=== PATIENT | male | born 1965 ===

== ENCOUNTER → 2019-08-28 | Outpatient (CLI) | payer OTHER ==
[~2019-08-28] MED LIST: HYDR-2765 PO; IOHEXOL 180 MG/ML 10 ML VIAL. ONE; methylPREDNISolone ACETATE 40 MG/ML VIAL. ONE; methylPREDNISolone ACETATE 80 MG/ML VIAL. ONE
--- NOTE | 2019-08-28 11:25 | PAIN ---
DATE OF SERVICE: 08/28/2019 INITIAL CONSULTATION FOR PAIN CLINIC CHIEF COMPLAINT: Low back and right lower extremity pain. HISTORY OF PRESENT ILLNESS: This is a 54-year-old male who presents with chief complaint of pain in the low back, right lower extremity since he fell on the ice about 4 months ago. The patient has some low back pain in the past, but nothing worse, radiating down to his right leg like it is now. The patient reports since that time is becoming more constant, sharp, radiating to the anterior thigh, anterior medial thigh, medial lower leg and knee as well as across the low back, mostly on the right side, but some on the left as well. The patient reports he has difficulty with sleeping, wakes him from sleep at least once or twice a night, does not affect his bowel or bladder control, but does affect his ability to walk in the right leg but would sometimes "give out" when he is walking. The patient reports he has not had any formal physical therapy at this time. He has been doing some stretching at home, which was recommended by his primary physician. The patient also seen a neurosurgeon who is requesting conservative measures at this time. The patient did have an MRI scan of the lumbar spine on 06/11/2019 showing generalized disk bulging and a protrusion at L3-L4 and L4-L5 with severe central spinal stenosis at the L3-L4 level, disk bulge, slightly more eccentric towards the right with severe right-sided neural foraminal narrowing, moderate left neural foraminal narrowing, L4-L5 shows generalized disk bulge eccentric towards the left with severe hypertrophic posterior facet degenerative change eccentric towards the right disk bulge, also with severe right-sided neural foraminal narrowing. The patient reports his disability range from 0-10, 10 being the worst, is an 8 in all categories, family home responsibilities, recreation, social activity, occupational activities, sexual behavior, self-care, social activity and life support activities. The patient has tried hydrocodone, which does decrease the pain, took it as recently as yesterday by about 50%. PAST MEDICAL HISTORY: Significant for no major medical problems or conditions this worst. PREVIOUS SURGERY: Include a right biceps tendon repair, tonsillectomy, ear tubes, bilateral hernia repair and vasectomy. CURRENT MEDICATIONS: Include only hydrocodone p.r.n. ALLERGIES: The patient has no known drug allergies. FAMILY HISTORY: Significant for no major medical problems or conditions he is aware of. SOCIAL HISTORY: The patient does not drink alcohol, does not smoke. Denies any illegal, illicit or recreational drugs. The patient is single, lives locally in [place], [place] and works as a laborer/grade check. REVIEW OF SYSTEMS: The patient's review of systems is positive for those items mentioned in the history of present illness. All systems reviewed and otherwise negative. It is complete, full and well documented on the patient's chart. PHYSICAL EXAMINATION: VITAL SIGNS: The patient's blood pressure 173/100, pulse 60, respirations 18, temperature 98.0 degrees Fahrenheit, height is 5 feet 6 inches, weight is 183 pounds. GENERAL: The patient is awake, alert, oriented, appropriate, very pleasant demeanor. HEENT: Shows normocephalic, atraumatic. Extraocular movements are intact and symmetrical. Oral cavity: Mucous membranes moist and pink. Dentition is intact. NECK: Shows anterior throat supple without palpable lymphadenopathy noted. Swallow reflex symmetrical. CHEST: Shows normal on inspection. Breath sounds are clear bilaterally. HEART: Shows S1, S2 clear. ABDOMEN: Soft, nontender, nondistended. No palpable organomegaly is noted. No rebound or guarding demonstrated. BACK: Shows spine grossly in the midline. Normal appearing thoracic kyphosis and lumbar lordotic curvature. Lumbar paraspinous muscle shows symmetrical on inspection, on palpation shows some mild tenderness throughout the upper, middle and lower distribution of paraspinous muscles, slightly more on the right than the left with some mild tenderness over the right posterior superior iliac spine, but no tenderness over the sacroiliac region itself over the sacrum or the spinous processes with direct palpation. The patient has good rotational motion of lumbar spine, both laterally greater than 10 degrees right and left as well as extension greater than 10 degrees, forward flexion 45 degrees without significant increase in pain. EXTREMITIES: The patient's lower extremities show deep tendon reflexes 2+ in the patellar, 1+ tendo-calcaneus, tendons are equal. Motor exam is 4 on a scale of 5 on the right with quadriceps and hamstring flexion 5/5 on the left. Peripheral pulses are 1+ posterior tibia. No peripheral edema is noted bilaterally. Lower extremities are warm and dry to touch, equal in color and appearance. Straight leg raising noted to be negative for reproduction of radicular symptoms bilaterally. Gaenslen's and Jose Raul's maneuvers are negative bilaterally as well. The patient is able to stand, stand on his toes without significant difficulty or loss of balance, walks with a slight favoring gait of the right lower extremity only very minimal, but not using any assistive devices to ambulate today. SKIN: The patient's skin shows warm and dry, good turgor. No edema. No sores, rashes or bruising throughout. IMPRESSION: 1. This is a 54-year-old male with approximate 4-month history after a fall with pain in low back radiating to the right lower extremity in a radicular fashion. 2. MRI scan of lumbar spine as noted. PLAN: Options were discussed with the patient including conservative medical managements, physical therapies and interventional techniques. He would like to pursue interventional techniques. We discussed a lumbar epidural steroid injection using description as well as anatomical models to describe the procedure. Risks were then discussed including, but not limited to bleeding, infection, possibility of epidural hematoma, subsequent neurological compromise, dural puncture, headaches, spinal cord and/or nerve damage, side effects of steroid medication and poor results regarding pain control. The patient understands and wished to proceed. The patient will return to the clinic in approximately 2 weeks for followup. He was counseled on return appointment, activity level and side effects to be aware of. DIAGNOSIS: Lumbar radiculopathy with lumbar degenerative disk disease and lumbar spondylosis. PROCEDURE: Lumbar epidural steroid injection, translaminar approach at the L3-L4 level using C-arm fluoroscopic guidance under sterile prep and drape using local anesthetic. MEDICATION INJECTED: A total of 120 mg Depo-Medrol plus 10 mL of preservative-free normal saline and 2 mL of contrast. CONDITION AT DISCHARGE: Stable. The patient tolerated the procedure well and had no complications. RAQUEL SOLARES MD DR: GENNY/luis JOB#: [id number] / [id number]
== END ==
LOC: PNCL 09:22
PROVIDERS: ATTEND Anesthesiology
DX: M51.16 Intervertebral disc disorders with radiculopathy, lumbar region (principal); M47.816 Spondylosis without myelopathy or radiculopathy, lumbar region; Z98.52 Vasectomy status
CPT/HCPCS: 62323; J1030; J1040; Q9965